=== PATIENT | female | born 1955 | race Caucasian/White ===

== ENCOUNTER → 2018-12-19 | Outpatient (CLI) | payer BC ==
--- NOTE | 2018-12-19 13:42 | Diagnostic Imaging Report ---
EXAM: Renal Ultrasound INDICATION: CKD stage 2. COMPARISON: None TECHNIQUE: Transverse and longitudinal images of the kidneys and bladder were obtained. FINDINGS: Right Kidney: Length: Measures 8.7 x 3.0 x 4.6 cm Appearance: Normal echogenicity. Collecting system: No hydronephrosis Stones: None Cyst/Mass: None Left Kidney: Length: Measures 9.1 x 4.0 x 4.2 cm Appearance: Normal echogenicity. Collecting system: No hydronephrosis Stones: None Cyst/Mass: None Bladder: Unremarkable in appearance. Bilateral ureteral jets are present. The prevoid volume is 114 cc and the post void volume is 7.2 cc. IMPRESSION: Unremarkable renal ultrasound. Signed by: Dr. Casie Segal MD on 12/19/2018 1:39 PM
== END ==
LOC: US 10:43
PROVIDERS: ATTEND Internal Medicine Nephrology
DX: N18.3 Chronic kidney disease, stage 3 (moderate) (principal)
CPT/HCPCS: 76770; 76857